=== PATIENT | male | born 1945 ===

== ENCOUNTER 2017-08-19 09:11 | Day surgery (SDC) | payer MEDICARE, MEDICAID ==
[2017-08-19 10:00] VITALS: BMI 25.0
[2017-08-19 10:06] VITALS: RESP 20; O2SAT 99
[2017-08-19] MEDS ORDERED: Propofol 10 mg/ml Inj (20 ML) ONE (11:14)
[2017-08-19] MEDS ORDERED: Lidocaine 2% MPF (5 ml) Inj ONE (11:14)
[2017-08-19] MEDS ORDERED: Lactated Ringer's 500 ML IV ONE (11:15)
[2017-08-19] MEDS ORDERED: ePHEDrine 50 mg/ml Inj ONE (11:18)
[2017-08-19] MEDS ORDERED: Methylene Blue 10 mg/mL(10ml) IV ONE (11:26)
[2017-08-19] MEDS ORDERED: EPINEPHrine 1 mg/ml (1:1000) Inj ONE (11:35)
[2017-08-19 12:09] VITALS: BP 112/51; PULSE 60; TEMP 979
== END 2017-08-19 12:09 | disposition home or self-care (01) ==
LOC: H.ENDO 09:11
PROVIDERS: ATTEND Internal Medicine Gastroenterology
DX: Z86.010 Personal history of colon polyps (principal); E11.9 Type 2 diabetes mellitus without complications; E78.5 Hyperlipidemia, unspecified; I10 Essential (primary) hypertension; G47.33 Obstructive sleep apnea (adult) (pediatric); K64.8 Other hemorrhoids; D49.0 Neoplasm of unspecified behavior of digestive system; K57.30 Diverticulosis of large intestine without perforation or abscess without bleeding
CPT/HCPCS: 45390; 88305; J0171; J2704; J7120

== ENCOUNTER 2017-11-11 08:04 | Day surgery (SDC) | payer MEDICARE, MEDICAID ==
[2017-11-11] MEDS ORDERED: Lactated Ringer's 1,000 ML IV ONE (08:21)
[2017-11-11] MEDS ORDERED: Propofol 10 mg/ml Inj (20 ML) ONE (09:10)
[2017-11-11] MEDS ORDERED: Lidocaine 2% MPF (5 ml) Inj ONE (09:10)
[2017-11-11] MEDS ORDERED: Methylene Blue 10 mg/mL(10ml) IV ONE (09:18)
[2017-11-11 09:47] VITALS: TEMP 97
[2017-11-11 10:02] VITALS: BP 124/78; PULSE 60; RESP 12; O2SAT 98
== END 2017-11-11 10:37 | disposition home or self-care (01) ==
LOC: H.ENDO 08:04
PROVIDERS: ATTEND Internal Medicine Gastroenterology
DX: K63.5 Polyp of colon (principal); K29.30 Chronic superficial gastritis without bleeding; E11.9 Type 2 diabetes mellitus without complications; I10 Essential (primary) hypertension; D12.2 Benign neoplasm of ascending colon; K64.8 Other hemorrhoids; Z86.010 Personal history of colon polyps
CPT/HCPCS: 45381; 82948; 88305; J2704; J7120

== ENCOUNTER 2018-03-03 08:07 | Day surgery (SDC) | payer MEDICARE, MEDICAID ==
[2018-03-03] MEDS ORDERED: Lactated Ringer's 500 ML IV ONE (08:48)
[2018-03-03] MEDS ORDERED: Propofol 10 mg/ml Inj (20 ML) ONE (09:32)
[2018-03-03 10:33] VITALS: BP 134/51; PULSE 91; RESP 23; TEMP 97; O2SAT 92
== END 2018-03-03 14:46 | disposition home or self-care (01) ==
LOC: H.ENDO 08:07
PROVIDERS: ATTEND Internal Medicine Gastroenterology
DX: Z86.010 Personal history of colon polyps (principal); E11.9 Type 2 diabetes mellitus without complications; E78.5 Hyperlipidemia, unspecified; I10 Essential (primary) hypertension; K64.2 Third degree hemorrhoids; D12.2 Benign neoplasm of ascending colon
CPT/HCPCS: 45385; 88305; J2001; J2704; J7120

== ENCOUNTER 2018-04-10 13:20 | Emergency (ER) | payer MEDICARE, MEDICAID ==
[2018-04-10 13:21] VITALS: BMI 25.0
[2018-04-10 13:25] VITALS: BP 149/72; PULSE 66; RESP 16; TEMP 97.7; O2SAT 100
--- NOTE | 2018-04-10 13:48 | ED PDOC ---
HPI: Allergic Reaction Time Seen by Provider: 04/10/18 13:34 Chief Complaint (Nursing): Allergic Reaction Chief Complaint (Provider): Allergic Reaction History Per: Patient History/Exam Limitations: language barrier (engraver rubber used) Onset/Duration Of Symptoms: Days (x3) Current Symptoms Are (Timing): Better Possible Cause: Unknown Associated Symptoms: Skin Rash, Redness Additional Complaint(s): 72 y/o male presents to the ED for an allergic reaction. Patient reports he noticed symptoms 3 days ago. He complains of redness to his arms and around his eyes. Patient also states he feels itchy to areas of redness. He denies knowing the source of the rash. He states it is better than it was 3 days ago. Patient denies any fever, using a new soap, or eating any new foods. PMD: Miguel Jones Past Medical History Reviewed: Historical Data, Nursing Documentation, Vital Signs Vital Signs: Last Vital Signs Temp 97.7 F 04/10/18 13:23 Pulse 66 04/10/18 13:23 Resp 16 04/10/18 13:23 BP 149/72 04/10/18 13:23 Pulse Ox 100 04/10/18 13:23 - Medical History PMH: Arthritis, Colonic Polyps, Diabetes, HTN, Hypercholesterolemia Denies: Chronic Kidney Disease - Surgical History Surgical History: No Surg Hx - Family History Family History: States: Unknown Family Hx - Home Medications Home Medications: Ambulatory Orders Medication Instructions Recorded Atorvastatin [Lipitor] 40 mg PO DAILY 03/03/18 Clopidogrel [Plavix] 75 mg PO DAILY 03/03/18 Ergocalciferol (Vitamin D2) 50,000 units PO DAILY 03/03/18 [Vitamin D2] Valsartan [Valsartan] 160 mg PO DAILY 03/03/18 amLODIPine [Norvasc] 5 mg PO DAILY 03/03/18 metFORMIN [glucOPHAGE] 500 mg PO DAILY 03/03/18 Methylprednisolone [Medrol Dose 1 tab PO ASDIR #21 mg 04/10/18 Pack (21 tabs)] - Allergies Allergies/Adverse Reactions: Allergies Allergy/AdvReac Type Severity Reaction Status Date / Time No Known Allergies Allergy Verified 03/03/18 08:40 Review of Systems ROS Statement: Except As Marked, All Systems Reviewed And Found Negative Skin: Positive for: Rash (arms and to both eyes with redness and itchiness) Physical Exam - Reviewed Nursing Documentation Reviewed: Yes Vital Signs Reviewed: Yes - Physical Exam Appears: Positive for: Well, Non-toxic, No Acute Distress Head Exam: Positive for: ATRAUMATIC, NORMOCEPHALIC Skin: Positive for: Rash (erythematous periodic non vasticillar rash in the bilateral temporal regions as well as anterior antecubitals) Cardiovascular/Chest: Positive for: Regular Rate, Rhythm. Negative for: Murmur Respiratory: Positive for: Normal Breath Sounds. Negative for: Respiratory Distress Neurologic/Psych: Positive for: Alert, Oriented (x3) - ECG O2 Sat by Pulse Oximetry: 100 (RA) Pulse Ox Interpretation: Normal Disposition - Clinical Impression Clinical Impression: Allergic reaction Doctor Will See Patient In The: Office Counseled Patient/Family Regarding: Diagnosis, Need For Followup, Rx Given - Disposition Referrals: Gabe Horn MD [Staff Provider] - Deon Rivera MD [Family Provider] - Disposition: Routine/Home Disposition Time: 13:58 Condition: STABLE Prescriptions: Methylprednisolone [Medrol Dose Pack (21 tabs)] 1 tab PO ASDIR #21 mg Forms: [employer]way (Armenian), P[employer]way (Wallisian) Print Language: ANDORRAN Medical Decision Making Medical Decision Making: Time: 13:23 Impression: Dermatitis versus allergic reaction Plan: * Medication to go home * Benadryl 50 mg IM * Decadron Inj Patient will be discharged home with Medrol dose pack and referral to Dr. Rojo, churn drill operator. Scribe Attestation: Documented by Felicia Keene acting as a scribe Huyen Tomlin PA-C. MD Scribe Attestation: All medical record entries made by the Scribe were at my direction and personally dictated by me. I have reviewed the chart and agree that the record accurately reflects my personal performance of the history, physical exam, medical decision making, and the department course for this patient. I have also personally directed, reviewed, and agree with the discharge instructions and disposition.
[2018-04-10] MEDS ORDERED: DiphenhydrAMINE 50 mg/ml Inj IM STA (13:49)
--- NOTE | 2018-04-10 13:50 | ED PDOC ---
HPI: Allergic Reaction Time Seen by Provider: 04/10/18 13:34 Chief Complaint (Nursing): Allergic Reaction Past Medical History Vital Signs: Last Vital Signs Temp 97.7 F 04/10/18 13:23 Pulse 66 04/10/18 13:23 Resp 16 04/10/18 13:23 BP 149/72 04/10/18 13:23 Pulse Ox 100 04/10/18 13:23 - Medical History PMH: Arthritis, Colonic Polyps, Diabetes, HTN, Hypercholesterolemia Denies: Chronic Kidney Disease - Family History Family History: States: Unknown Family Hx - Home Medications Home Medications: Ambulatory Orders Medication Instructions Recorded Atorvastatin [Lipitor] 40 mg PO DAILY 03/03/18 Clopidogrel [Plavix] 75 mg PO DAILY 03/03/18 Ergocalciferol (Vitamin D2) 50,000 units PO DAILY 03/03/18 [Vitamin D2] Valsartan [Valsartan] 160 mg PO DAILY 03/03/18 amLODIPine [Norvasc] 5 mg PO DAILY 03/03/18 metFORMIN [glucOPHAGE] 500 mg PO DAILY 03/03/18 - Allergies Allergies/Adverse Reactions: Allergies Allergy/AdvReac Type Severity Reaction Status Date / Time No Known Allergies Allergy Verified 03/03/18 08:40 - ECG O2 Sat by Pulse Oximetry: 100 Disposition - Disposition
[2018-04-10] MEDS ORDERED: Dexamethasone 4 mg/1 ml ONE (13:51)
== END 2018-04-10 14:12 | disposition home or self-care (01) ==
LOC: H.ER 13:20
DX: T78.40XA Allergy, unspecified, initial encounter (principal); E11.9 Type 2 diabetes mellitus without complications; E78.00 Pure hypercholesterolemia, unspecified; I10 Essential (primary) hypertension; Z79.84 Long term (current) use of oral hypoglycemic drugs
CPT/HCPCS: 96372; 99282; J1100; J1200

== ENCOUNTER 2018-12-08 08:13 | Day surgery (SDC) | payer MEDICARE, MEDICAID ==
[2018-12-08 08:53] VITALS: BMI 25.4
[2018-12-08] MEDS ORDERED: Propofol 10 mg/ml Inj (20 ML) ONE (10:11)
[2018-12-08 12:44] VITALS: RESP 12; TEMP 97.6; O2SAT 97
[2018-12-08 12:59] VITALS: BP 141/44; PULSE 60
== END 2018-12-08 13:30 | disposition home or self-care (01) ==
LOC: H.ENDO 08:13
PROVIDERS: ATTEND Internal Medicine Gastroenterology
DX: K63.4 Enteroptosis (principal); E78.5 Hyperlipidemia, unspecified; I10 Essential (primary) hypertension; Z86.010 Personal history of colon polyps; K64.2 Third degree hemorrhoids; D12.2 Benign neoplasm of ascending colon
CPT/HCPCS: 45380; 82948; 88305; J2001; J2704

== ENCOUNTER 2019-03-23 07:36 | Day surgery (SDC) | payer MEDICARE, MEDICAID ==
[2019-03-23] MEDS ORDERED: Lactated Ringer's 500 ML IV ONE (07:57)
[2019-03-23 08:06] VITALS: BMI 25.0
[2019-03-23] MEDS ORDERED: Propofol 10 mg/ml Inj (20 ML) ONE (09:37)
[2019-03-23 10:07] VITALS: RESP 16; O2SAT 98
[2019-03-23 10:21] VITALS: PULSE 58
[2019-03-23 10:30] VITALS: BP 149/78; TEMP 98.2
== END 2019-03-23 10:45 | disposition home or self-care (01) ==
LOC: H.ENDO 07:36
PROVIDERS: ATTEND Internal Medicine Gastroenterology
DX: K63.5 Polyp of colon (principal); K64.2 Third degree hemorrhoids; K64.4 Residual hemorrhoidal skin tags
CPT/HCPCS: 45380; 88305; J2001; J2704; J7120